=== PATIENT | male | born 1930 | race Caucasian/White ===

== ENCOUNTER 2018-09-08 13:24 | Emergency (ER) | payer MEDICARE, MEDICAID ==
--- NOTE | 2018-09-08 13:57 | EDM.PDOC ---
ED HPI GENERAL MEDICAL PROBLEM - General Stated Complaint: FELL AND HIT HEAD Time Seen by Provider: 09/08/18 13:45 Source of Information: Reports: Other ([facility] home patient medical service representative) History Limitations: Reports: Other - History of Present Illness INITIAL COMMENTS - FREE TEXT/NARRATIVE: This 87 yo male patient was brought to the ED by a [facility] patient medical service representative. The medical service representative reports the patient was found near the restroom on the floor with a laceration to his right forehead. Prior to coming to the ED, the patient's wound was cleaned and bandaged. The patient followed directions well, but did not communicate verbally during the visit. The medical service representative reports his responses are normal for him. Onset: Sudden Duration: Improving Location: Reports: Head (laceration right forehead) Quality: Reports: Other Severity: Moderate Improves with: Reports: None Worsens with: Reports: None Context: Reports: Other Associated Symptoms: Reports: No Other Symptoms Past Medical History HEENT History: Reports: None Cardiovascular History: Reports: High Cholesterol, Hypertension Respiratory History: Reports: None Gastrointestinal History: Reports: None Genitourinary History: Reports: None Musculoskeletal History: Reports: None Neurological History: Reports: Other (See Below) Other Neuro History: autism, 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, Antisocial Behaviors , Autism, Developmental Delay Endocrine/Metabolic History: Reports: Hypothyroidism Hematologic History: Reports: None Immunologic History: Reports: None Oncologic (Cancer) History: Reports: None Dermatologic History: Reports: None - Infectious Disease History Infectious Disease History: Reports: None - Past Surgical History Head Surgeries/Procedures: Reports: None HEENT Surgical History: Reports: Oral Surgery, Other (See Below) Other HEENT Surgeries/Procedures: dentures Social & Family History - Family History Family Medical History: Noncontributory - Tobacco Use Smoking Status *Q: Unknown Ever Smoked - Recreational Drug Use Recreational Drug Use Frequency: Patient Refuses To Answer ED ROS GENERAL - Review of Systems Review Of Systems: ROS reveals no pertinent complaints other than HPI. ED EXAM, HEAD INJURY - Physical Exam Exam: See Below Exam Limited By: Other ([facility] Home patient) General Appearance: Alert, WD/WN, No Apparent Distress Head: Scalp Lacerations, Scalp Abrasions Nexus Criteria: No: Posterior, Midline Cervical Tenderness, Evidence of Intoxication, Altered Level of Consciousness, Focal Neurological Deficit, Painful Distraction Injuries Eyes: Bilateral Eye: EOMI, Normal Inspection, PERRL Ears: Normal External Exam, Normal Canal, Hearing Grossly Normal, Normal TMs Nose: Normal Inspection, Normal Mucousa, No Blood Throat/Mouth: Normal Inspection, Normal Lips, Normal Teeth, Normal Gums, Normal Oropharynx, Normal Voice, No Airway Compromise Neck: Non-Tender, Full Range of Motion, Normal Alignment, Normal Inspection Respiratory: No Respiratory Distress, Lungs Clear, Normal Breath Sounds, No Accessory Muscle Use, Chest Non-Tender Cardiovascular: Normal Peripheral Pulses, Regular Rate, Rhythm, No Edema, No Gallop, No JVD, No Murmur, No Rub GI/Abdominal Exam: Normal Bowel Sounds, Soft, Non-Tender, No Organomegaly, No Distention, No Abnormal Bruit, No Mass (Male) Exam: Deferred Rectal (Males) Exam: Deferred Back Exam: Full Range of Motion, Normal Inspection, NT Extremities: Normal Inspection, Normal Range of Motion, Non-Tender, No Pedal Edema, Normal Capillary Refill Neurologic: compensator II-XII nml As Tested, No Motor/Sensory Deficits, Alert, Normal Mood/Affect, Oriented x 3 Skin: Normal Color, Warm/Dry - [place] Coma Score Best Eye Response (Christian): (4) Open Spontaneously Best Verbal Response ([place]): (5) Oriented Best Motor Response (Christian): (6) Obeys Commands Christian Total: 15 ED LACERATION/WOUND & ALEXANDRA PROC - Laceration/Wound Repair Right Head Lac/wound length in cm: 1.5 Appearance: Subcutaneous Anesthetic Type: Local Local Anesthesia - Lidocaine (Xylocaine): 1% Plain Local Anesthetic Volume: 2cc Skin Prep: Saline Exploration/Debridement/Repair: Wound Explored, No Foreign Material Found Closed with: Sutures Suture Size: 4-0 # of Sutures: 3 Suture Type: Prolene, Interrupted, Simple Drain Placement: No Sterile Dressing Applied: Nurse Tetanus Status Addressed: Yes Complications: No Course - Vital Signs Last Recorded V/S: Last Vital Signs Temp 36.8 C 09/08/18 13:39 Pulse 101 H 09/08/18 13:39 Resp 26 H 09/08/18 13:39 BP 175/75 H 09/08/18 13:39 Pulse Ox 99 09/08/18 13:39 - Orders/Labs/Meds Orders: Active Orders 24 hr Category Date Time Status EKG Documentation Completion [RC] URGENT Care 09/08/18 13:31 Active Labs: Laboratory Tests 09/08/18 09/08/18 09/08/18 Range/Units 13:39 13:39 13:44 WBC 6.3 (5.0-10.0) 10^3/uL RBC 4.23 L (4.6-6.2) 10^6/uL Hgb 12.9 L (14.0-18.0) g/dL Hct 39.4 L (40.0-54.0) % MCV 93.1 (80-100) fL MCH 30.5 (27.0-34.0) pg MCHC 32.7 L (33.0-35.0) g/dL Plt Count 329 (150-450) 10^3/uL Neut % (Auto) 61.7 (42.2-75.2) % Lymph % (Auto) 27.5 (20.5-50.1) % [place] % (Auto) 8.9 H (2-8) % Eos % (Auto) 1.6 (1.0-3.0) % Baso % (Auto) 0.3 (0.0-1.0) % Sodium 135 (135-145) mmol/L Potassium 3.9 (3.6-5.0) mmol/L Chloride 104 (101-111) mmol/L Carbon Dioxide 22.0 (21.0-31.0) mmol/L Anion Gap 12.9 BUN 22 H (7-18) mg/dL Creatinine 1.1 (0.6-1.3) mg/dL Est Cr Clr Drug Dosing 37.99 mL/min Estimated GFR (MDRD) > 60 BUN/Creatinine Ratio 20.00 Glucose 150 H (74-105) mg/dL Calcium 8.5 (8.4-10.2) mg/dl Total Bilirubin 0.8 (0.2-1.0) mg/dL AST 30 (10-42) IU/L ALT 17 (10-60) IU/L Alkaline Phosphatase 90 (42-121) IU/L Troponin I < 0.02 (0.00-0.02) ng/ml Total Protein 7.0 (6.7-8.2) g/dl Albumin 4.0 (3.2-5.5) g/dl Globulin 3.0 Albumin/Globulin Ratio 1.33 Urine Color Yellow (YELLOW) Urine Appearance Clear (CLEAR) Urine pH 5.0 (5.0-9.0) Ur Specific [place] 1.020 (1.005-1.030) Urine Protein Negative (NEGATIVE) Urine Glucose (UA) Negative (NEGATIVE) Urine Ketones Negative (NEGATIVE) Urine Occult Blood Negative (NEGATIVE) Urine Nitrite Negative (NEGATIVE) Urine Bilirubin Negative (NEGATIVE) Urine Urobilinogen 0.2 (0.2-1.0) mg/dL Ur Leukocyte Esterase Negative (NEGATIVE) Meds: Medications Discontinued Medications Generic Name Dose Route Start Last Admin Trade Name Catia PRN Reason Stop Dose Admin Bacitracin 1 dose 09/08/18 14:35 09/08/18 14:41 Bacitracin Oint 1 Gm TOP 09/08/18 14:36 1 dose ONETIME ONE Administration Lidocaine HCl 30 ml 09/08/18 14:35 09/08/18 14:41 Xylocaine-Mpf 1% INJECT 09/08/18 14:36 30 ml ONETIME ONE Administration Departure - Departure Time of Disposition: 14:52 Disposition: Home, Self-Care 01 Condition: Fair Clinical Impression: Fall from ground level Scalp laceration Qualifiers: Encounter type: initial encounter Qualified Code(s): S01.01XA - Laceration without foreign body of scalp, initial encounter - Discharge Information *PRESCRIPTION DRUG MONITORING PROGRAM REVIEWED*: Not Applicable *COPY OF PRESCRIPTION DRUG MONITORING REPORT IN PATIENT DERIAN: Not Applicable Instructions: Stitches, [place], or Adhesive Wound Closure, [id number], Laceration Care, Adult, [id number], Head Injury, Adult, [id number] Forms: ED Department Discharge Care Plan Goals: The patient and [facility] home patient care provider were advised of the examination, lab, EKG and CT results during the visit. The patient's laceration margins were well approximated during the visit. The patient should keep the area clean and dry over the next 24 hours. The patient should have the sutures removed in 10- 14 days. If the patient has any additional symptoms or concerns, the patient should either return to the emergency department or visit his primary care facility. - My Orders Last 24 Hours: My Active Orders 09/08/18 13:31 EKG Documentation Completion [RC] URGENT - Assessment/Plan Last 24 Hours: My Active Orders 09/08/18 13:31 EKG Documentation Completion [RC] URGENT
[2018-09-08 14:05] LABS: ANION GAP 12.9; CHLORIDE,CL 104 mmol/L (101-111); SODIUM,NA 135 mmol/L (135-145)
--- NOTE | 2018-09-08 14:13 | CT ---
Clinical history: 87-year-old hypertensive 120 pound male injured in ground-level fall. Scan technique: Volume acquisition of data emergency unenhanced CT scan of the head and brain obtained with the patient lying supine on the Siemens multi slice scanner [place], [place]. All data archived in the PACS system for storage, reformatting axial/sagittal/coronal planes and study. No comparison exams. Interpretation: 1. Uniformly thick bony calvarium without sign of skull fracture, underlying brain contusion or epidural/subdural hematoma. 2. 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 3. Symmetric age-appropriate atrophy with underlying mirror-image prominence of the ventricular system. No hydrocephalus. 4. *No sign of acute intracerebral/intraventricular/subarachnoid blood i.e. no intracranial bleed. 5. No supratentorial or posterior fossa mass lesion. Cerebellar atrophy. Brainstem unremarkable. CONCLUSION: Age-related atrophy and... multi-infarct ischemic disease. Ventricular prominence. No intracranial mass or bleed.
--- NOTE | 2018-09-08 14:17 | CT ---
Clinical history: 87-year-old male injured in ground-level fall. Scan technique: Volume acquisition of data emergency unenhanced CT scan of the facial bones and sinuses obtained with patient lying supine on the Siemens multi slice scanner [place], [place]. All data archived in the PACS system for storage, reformatting axial/sagittal/coronal planes and study. Interpretation: Negative exam. No sign of acute facial bone fracture. Edentulous patient. Arthritic changes TM joints No foreign bodies. Symmetric clear pneumatization of the paranasal and mastoid sinuses. 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
--- NOTE | 2018-09-08 14:20 | CT ---
Clinical history: 87-year-old male acutely injured in ground-level fall. TECHNIQUE: Volume acquisition of data emergency unenhanced CT scan of the cervical spine obtained with patient lying supine on the Siemens multislice [place], [place]. All data archived in the PACS system for storage, reformatting axial/sagittal/coronal planes and study. 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 interspace narrowing with endplate sclerosis and some marginal spur formation particularly C3-C4, C4-C5, C5-6, C6-C7 levels (facet joint sclerosis posteriorly). *No prevertebral soft tissue swelling, cervical fracture, spondylolisthesis or jumped locked facets. No pathologic skeletal lesion this osteopenic patient with prominent uncinate spurs C4-5 C5-6 and C6-C7 levels. No basal skull fracture.
[2018-09-08] MEDS ORDERED: Bacitracin Oint 1 GM U/D Packet TOP ONE (14:35)
[2018-09-08] MEDS ORDERED: Lidocaine 1% 30 ML SDV INJECT ONE (14:35)
== END 2018-09-08 14:59 | disposition home or self-care (01) ==
LOC: DL.ED 13:24
DX: S01.01XA Laceration without foreign body of scalp, initial encounter (principal); E78.00 Pure hypercholesterolemia, unspecified; E03.9 Hypothyroidism, unspecified; I10 Essential (primary) hypertension; W18.39XA Other fall on same level, initial encounter
CPT/HCPCS: 12001; 36415; 70450; 70486; 72125; 80053; 81003; 84484; 85025; 93005; 99284; J2001

== ENCOUNTER 2018-09-22 13:39 | Emergency (ER) | payer MEDICARE, MEDICAID ==
--- NOTE | 2018-09-22 13:49 | EDM.PDOC ---
ED HPI GENERAL MEDICAL PROBLEM - General Chief Complaint: Wound Recheck Stated Complaint: NEEDS STITCHES OUT Time Seen by Provider: 09/22/18 13:47 Source of Information: Reports: Patient, Old Records, RN, RN Notes Reviewed, Other (Caregiver) - History of Present Illness INITIAL COMMENTS - FREE TEXT/NARRATIVE: Pt presented from the [facility] with request for wound check and suture removal. Pt was seen here on 09/08/18 and had 3 sutures to a small scalp laceration. Denies any current or new complaints. 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, Antisocial Behaviors , Autism, Developmental Delay Endocrine/Metabolic History: Reports: Hypothyroidism Hematologic History: Reports: None Immunologic History: Reports: None Oncologic (Cancer) History: Reports: None Dermatologic History: Reports: None - Infectious Disease History Infectious Disease History: Reports: None - Past Surgical History Head Surgeries/Procedures: Reports: None HEENT Surgical History: Reports: Oral Surgery, Other (See Below) Other HEENT Surgeries/Procedures: dentures Social & Family History - Family History Family Medical History: Noncontributory - Living Situation & Occupation Living situation: Reports: Single, Other ([facility] (long-term)) Occupation: Disabled ED ROS GENERAL - Review of Systems Review Of Systems: ROS reveals no pertinent complaints other than HPI. ED EXAM, SKIN/RASH Exam: See Below Exam Limited By: No Limitations General Appearance: Alert, No Apparent Distress Head: Normocephalic, Other (Well healed laceration to parietal scalp w/3 intact sutures) Respiratory/Chest: No Respiratory Distress Neurological: Alert, No Motor/Sensory Deficits Psychiatric: Normal Mood Course - Re-Assessments/Exams Free Text/Narrative Re-Assessment/Exam: 09/22/18 13:52 Sutures removed without complication. Departure - Departure Time of Disposition: 13:47 Disposition: Home, Self-Care 01 Condition: Good Clinical Impression: Encounter for removal of sutures Scalp laceration Qualifiers: Encounter type: subsequent encounter Qualified Code(s): S01.01XD - Laceration without foreign body of scalp, subsequent encounter - Discharge Information *PRESCRIPTION DRUG MONITORING PROGRAM REVIEWED*: No *COPY OF PRESCRIPTION DRUG MONITORING REPORT IN PATIENT DERIAN: No Instructions: Suture Removal, Care After Forms: ED Department Discharge Additional Instructions: Follow up in clinic if any further problems.
== END 2018-09-22 13:56 | disposition home or self-care (01) ==
LOC: DL.ED 13:39
CPT/HCPCS: 99281; 99282

== ENCOUNTER 2021-09-04 17:54 | Emergency (ER) | payer MEDICARE, MEDICAID ==
[2021-09-04 18:41] LABS: ANION GAP 14.6 mEq/L (7-13); CHLORIDE,CL 102 mmol/L (98-107); SODIUM,NA 139 mmol/L (136-145)
[2021-09-04] MEDS ORDERED: HYDROmorphone 0.5 MG/0.5 ML Syringe IVPUSH ONE ×2 (19:20→20:44)
== END 2021-09-04 20:58 ==
LOC: DL.ED 17:54
DX: S72.092A Other fracture of head and neck of left femur, initial encounter for closed fracture (principal); E03.9 Hypothyroidism, unspecified; E78.00 Pure hypercholesterolemia, unspecified; I10 Essential (primary) hypertension; Z79.899 Other long term (current) drug therapy; W22.09XA Striking against other stationary object, initial encounter
CPT/HCPCS: 36415; 71045; 73502; 73610; 80048; 85025; 93005; 96374; 96376; 99285; J1170

== ENCOUNTER 2021-09-29 19:12 | Emergency (ER) | payer MEDICARE, MEDICAID | END 2021-09-29 21:38 | disposition home or self-care (01) | LOC: DL.ED 19:12 | DX: S90.32XA Contusion of left foot, initial encounter (principal); E78.00 Pure hypercholesterolemia, unspecified; I10 Essential (primary) hypertension; E03.9 Hypothyroidism, unspecified; Z79.899 Other long term (current) drug therapy; W20.8XXA Other cause of strike by thrown, projected or falling object, initial encounter | CPT/HCPCS: 73630-LT; 99283; 99283-25 ==